=== PATIENT | female | born 1980 | race Caucasian/White ===

== ENCOUNTER 2017-01-02 06:43 | Day surgery (SDC) | payer OTHER ==
[2017-01-02] MEDS ORDERED: NS 1,000 ML IV ONE (06:52)
[2017-01-02] MEDS ORDERED: DIAZEPAM 5 MG TAB PO ONE (06:52)
[2017-01-02] MEDS ORDERED: ceFAZolin 2 GM/DEXTROSE 100 ML IV ONE (06:52)
[2017-01-02] MEDS ORDERED: BACITRACIN IRRIGATION/NS 50,000 UNITS/1,000 ML BTL IRR ONE (06:52)
[2017-01-02] MEDS ORDERED: diphenhydrAMINE 25 MG CAP PO ONE (06:52)
--- NOTE | 2017-01-02 07:14 | CPEKG ---
Heart Rate: 81 RR Interval: 741 P-R Interval: 168 QRSD Interval: 108 QT Interval: 408 QTC Interval: 474 P [place]: 27 QRS [place]: -21 T Wave [place]: 12 EKG Severity - ABNORMAL ECG - EKG Impression: SINUS RHYTHM EKG Impression: LEFT VENTRICULAR HYPERTROPHY Electronically Signed By: Cristiano Vazquez 02-Jan-2017 16:08:08
[2017-01-02 07:33] LABS: % IMMATURE GRANULYOCYTES 1.1 % (0.0-1.1); ABSOLUTE IMMATURE GRANULOCYTES 0.08 10^3/uL (0.00-0.10); ABSOLUTE NRBC COUNT 0.04 10^3/uL (0-0.01); ADD DIFF? NO; ADD MORPH? YES; ADD SCAN? NO; ATYPICAL LYMPHOCYTE FLAG 10 (0-99); FRAGMENT RBC FLAG 20 (0-99); HEMATOCRIT 41.6 % (38.0-47.0); HEMOGLOBIN 12.9 g/dL (12.6-16.3); LEFT SHIFT FLG 10 (0-99); LIPEMIA HEMOLYSIS FLAG 80 (0-99); MEAN CELL VOLUME 87.2 fL (81.5-99.8); MEAN PLATELET VOLUME 9.6 fL (8.7-11.7); NRBC-AUTO% 0.5 % (0.0-0.2); PLATELET CLUMPS FLAG 10 (0-99); PLATELET COUNT 227 10^3/uL (150-400); RED BLOOD CELL COUNT 4.77 10^6/uL (4.18-5.33)
[2017-01-02 07:35] LABS: RED CELL DISTRIBUTION WIDTH 21.3 % (11.5-15.2)
[2017-01-02 07:42] LABS: INR 1.5 (0.83-1.16); PROTIME(PATIENT) 18.1 SEC (12.0-15.0)
[2017-01-02 07:45] LABS: ANION GAP 10 mEq/L (8-16); CALCIUM 8.7 mg/dL (8.5-10.4); CARBON DIOXIDE 31 mEq/l (22-31); CHLORIDE 101 mEq/L (97-110); CREATININE 0.7 mg/dL (0.6-1.0); GLOMERULAR FILTRATION RATE > 60; GLUCOSE 88 mg/dL (70-100); POTASSIUM 4.3 mEq/L (3.5-5.2); SODIUM 142 mEq/L (134-144)
[2017-01-02 07:54] LABS: MACROCYTES 1+; MICROCYTES 2+
[2017-01-02 07:55] LABS: HYPOCHROMIA 1+; PLATELET ESTIMATE ADEQUATE (ADEQ)
[2017-01-02] MEDS ORDERED: LIDOCAINE 1% 300 MG/30 ML SDV ONE (08:17)
[2017-01-02] MEDS ORDERED: fentaNYL 100 MCG/2 ML INJ ONE ×2 (08:17→09:22)
[2017-01-02] MEDS ORDERED: MIDAZOLAM 2 MG/2 ML VIAL ONE ×2 (08:17→09:19)
[2017-01-02] MEDS ORDERED: LIDO/EPI 1% **for epidural** 30 ML SDV ONE (08:18)
[2017-01-02] MEDS ORDERED: BUPIVACAINE 0.5% 30 ML SDV ONE (08:18)
[2017-01-02] MEDS ORDERED: DEXMEDETOMIDINE HCL 200 MCG/2 ML VIAL IV ONE (09:21)
[2017-01-02] MEDS ORDERED: PROPOFOL/EMULSION 500 MG/50 ML BOTTLE IV ONE ×2 (09:22→10:06)
--- NOTE | 2017-01-02 10:43 | EPPROC ---
Electrophysiology Procedure Note: PROCEDURE PERFORMED: 1. AV Pacemaker generator change INDICATION: Pacemaker generator at REGLA Bradycardia PROCEDURE NOTE: Patient presented to the cardiac catheterization laboratory in a fasting, postabsorptive state. Anesthesiologist provided moderate sedation. The right infraclavicular area was prepped and draped in the usual sterile fashion. Lidocaine plus bupivacaine was used for local anesthesia. Using a combination of blunt and sharp dissection and electrocautery, the dissection was carried down to the prepectoral fascia and the existing pacemaker pocket was opened. The pacemaker generator was disconnected from the leads and the lead thresholds and impedance were checked. The pacemaker pocket was copiously irrigated with antibiotic solution. The pocket was again inspected for any bleeding. The leads were attached to the pacemaker securely. The pacemaker was inserted into the pocket and secured in place with a nonabsorbable suture. The pacemaker pocket was closed in 3 layers with absorbable monocryl sutures. Appropriate dressing was applied. The patient left the cardiac catheterization laboratory in stable condition. Serial Numbers: 1. Device Medtronic Advisa [id number] 2. Atrial Lead Medtronic 4076 [id number] 3. Ventricular Lead Medtronic 4076 [id number] Stimulation Thresholds & Impedance Measurements: 1. Atrial Lead 2.1mV, 0.5@0.5ms, 453Ohms 2. Ventricular Lead 15.3mV, 0.6@0.5ms, 472Ohms Deshawn Pacing Parameters 1. Pacing mode DDD 2. Lower rate 60 3. Upper tracking rate 135
[2017-01-02] MEDS ORDERED: NALOXONE HCL 0.4 MG/ML INJ IVP PRN ×2 (11:01→11:02)
--- NOTE | 2017-01-02 11:01 | PDANEPAE ---
ANE History of Present Illness presents for PM gen change ANE Past Medical History - Cardiovascular History Hx Hypertension: No Hx Arrhythmias: Yes Hx Chest Pain: No Hx Coronary Artery / Peripheral Vascular Disease: No Hx CHF / Valvular Disease: No Hx Palpitations: No - Pulmonary History Hx COPD: No Hx Asthma/Reactive Airway Disease: No Hx Recent Upper Respiratory Infection: No Hx Oxygen in Use at Home: Yes Hx Sleep Apnea: Yes - Neurologic History Hx Cerebrovascular Accident: No Hx Seizures: No Hx Dementia: No - Endocrine History Hx Diabetes: No Hypothyroid: No Hyperthyroid: No Obesity: severe - Renal History Hx Renal Disorders: No - Liver History Hx Hepatic Disorders: No - Cancer History Hx Cancer: No - Congenital Disorder History Hx Congenital Disorders: No - GI History Hx Gastrointestinal Disorders: No - Other Health History Other Health History: h/o DVT/PE on coumadin ANE Review of Systems Review of systems is: negative - Exercise capacity Exercise capacity: >=4 METS ANE Patient History - Allergies Allergies/Adverse Reactions: No Known Allergies Allergy (Unverified 01/02/17 06:52) - Home Medications Home Medications: Aleve Pm Caplet PO 01/02/17 [Last Taken 12/26/16] Amitriptyline HCl 50 mg PO 01/02/17 [Last Taken Unknown] Amitriptyline HCl 50 mg PO DAILY 01/02/17 [Last Taken 01/01/17] Calcium 500 + Vit D Caplet 1 tab PO BID 01/02/17 [Last Taken 01/01/17] Cymbalta 90 mg PO DAILY 01/02/17 [Last Taken 01/01/17] Ferrous Sulfate [Feosol] PO BID 01/02/17 [Last Taken 01/01/17] LAMOTRIGINE 30 g PO DAILY 01/02/17 [Last Taken 01/01/17] Latuda 60 mg PO DAILY 01/02/17 [Last Taken 01/01/17] Levothyroxine 112 mcg PO DAILY 01/02/17 [Last Taken 01/01/17] Metoprolol Succinate 25 mg PO DAILY 01/02/17 [Last Taken 01/01/17] Oxycodone HCl 15 mg PO PRN PRN 01/02/17 [Last Taken 01/01/17] Oxycontin 60 mg PO PRN PRN 01/02/17 [Last Taken 01/01/17] Pantoprazole Sodium 40 mg PO DAILY 01/02/17 [Last Taken 01/01/17] Valacyclovir 500 mg PO DAILY 01/02/17 [Last Taken 01/01/17] Valium 5 MG (*) 5 mg PO PRN PRN 01/02/17 [Last Taken 12/26/16] Warfarin Sodium 4 mg PO 01/02/17 [Last Taken 12/29/16] Warfarin Sodium 5 mg PO 01/02/17 [Last Taken 12/30/16] traZODone 100 mg PO PRN PRN 01/02/17 [Last Taken 12/26/16] - NPO status NPO Status: no food or drink >8 hours - Smoking Hx Smoking Status: Never smoked ANE Labs/Vital Signs - Labs Result Diagrams: 01/02/17 07:20 01/02/17 07:20 - Vital Signs Height: 175 cm Weight: 127.9 kg ANE Physical Exam - Airway Neck exam: FROM Mallampati Score: Class 2 Mouth exam: normal dental/mouth exam - Pulmonary Pulmonary: no respiratory distress - Cardiovascular Cardiovascular: regular rate and rhythym - ASA Status ASA Status: III ANE Anesthesia Plan Anesthesia Plan: MAC Urgent/Emergent Case: Darian paul completed preop but documented later for safe timely pt care
[2017-01-02] MEDS ORDERED: fentaNYL 100 MCG/2 ML INJ IVP PRN (11:02)
[2017-01-02] MEDS ORDERED: ONDANSETRON 4 MG/2 ML VIAL IVP PRN (11:02)
--- NOTE | 2017-01-02 11:04 | POSTANESTH ---
Post Anesthetic Evaluation Cardiovascular Status: Normal, Stable Respiratory Status: Normal, Stable Level of Consciousness/Mental Status: Can Participate in Eval Pain Control: Adequate, Prn Tx Ordered Nausea/Vomiting Control: Adequate, Prn Tx Ordered Complications Possibly Related to Anesthesia: None Noted (awake talking. CHELSIE protocol)
== END 2017-01-02 14:10 | disposition home or self-care (01) ==
LOC: FCATH 06:43
PROVIDERS: ATTEND Internal Medicine Cardiovascular Disease
PROC: 0JPT0PZ Removal of Cardiac Rhythm Related Device from Trunk Subcutaneous Tissue and Fascia, Open Approach (ICD-10-PCS; principal; 2017-01-02)
PROC: 0JH606Z Insertion of Pacemaker, Dual Chamber into Chest Subcutaneous Tissue and Fascia, Open Approach (ICD-10-PCS; principal; 2017-01-02)
DX: Z45.010 Encounter for checking and testing of cardiac pacemaker pulse generator [battery] (principal); R00.1 Bradycardia, unspecified; Z86.718 Personal history of other venous thrombosis and embolism; G47.33 Obstructive sleep apnea (adult) (pediatric); E66.9 Obesity, unspecified; Z68.41 Body mass index [BMI] 40.0-44.9, adult
CPT/HCPCS: C1785; J0690; J2250; J2704; J3010

== ENCOUNTER 2017-07-06 18:52 | Inpatient (IN) | payer OTHER ==
--- NOTE | 2017-07-06 19:12 | EDPHY ---
H & P Stated Complaint: sob cp last 3 days HPI/ROS: CHIEF COMPLAINT: Shortness of breath, chest pain HISTORY OF PRESENT ILLNESS: The patient is an obese, anticoagulated (Coumadin) 36 y/o female with a history of WPW status post-ablation x3, pacemaker placement, DVT and PE, GERD, complaining of shortness of breath and chest pain since , 3 days ago, while relaxing. Last year she had a reportedly normal stress test. The pain began on substernally, but is now radiating to/under her left breast; it occasionally radiates to her right chest. She denies arm, neck, or jaw pain. She was able to do activities on Friday and yesterday if she wore oxygen. Today she began to feel nauseous. Her symptoms today did not feel the same as prior PE's, DVT's, or anxiety attacks. She tells me that she spoke with her kickboxing instructor who recommended a catheterization if her current symptoms persisted. Denies recent trauma or injury, calf pain, abdominal pain, vomiting, bowel complaints, urinary complaints or other pertinent symptoms. Followed by Dr. Bergeron, kickboxing instructor. REVIEW OF SYSTEMS: A ten point review of systems was performed and is negative with the exception of the items mentioned in the HPI. Past medical history: 1. DVT/PE 2. pulmonary HTN 3. WPW status post-ablation x3 4. Ankylosing spondylitis 5. Sleep apnea, CPAP and supplemental oxygen 6. Bipolar 7. GERD Past surgical history: 1. Pacemaker 2017 2. Lumbar surgery 2009 Family history: Denies Social history: Lives in [place], , nonsmoker General Appearance: Obese. Alert. Vital signs reviewed. Blood pressure measured 122/100 at triage. Eyes: Pupils equal and round, no conjunctival injection, no discharge. Anicteric. ENT, Mouth: Mucous membranes are dry, no oropharyngeal erythema or edema. Neck: No lymphadenopathy, supple. NO JVD. Respiratory: Lungs are clear to auscultation; no wheezes, rales, or rhonchi. Cardiovascular: Regular rate and rhythm; no murmur, rub, or gallop. Gastrointestinal: Obese. Abdomen is soft and nontender, no masses or organomegaly, bowel sounds normal. Skin: Warm and dry, no rashes on exposed skin, normal color. Back: Nontender to palpation over the thoracolumbar spine. No CVAT. Extremities: No lower extremity edema, no calf tenderness or swelling. Neurological: Alert and oriented. Moving all four extremities easily and equally. Psychiatric: Normal affect. - Personal History LMP (Females 10-55): IUD In Place Current Tetanus/Diphtheria Vaccine: Yes - Medical/Surgical History Hx Asthma: No Hx Chronic Respiratory Disease: No Hx Diabetes: No Hx Cardiac Disease: Yes Hx Renal Disease: No Hx Cirrhosis: No Hx Alcoholism: No Hx HIV/AIDS: No Hx Splenectomy or Spleen Trauma: No Other PMH: wpw pht/pacemaker/dvt/pe/ankylosing spondylitis - Social History Smoking Status: Never smoked Constitutional: Initial Vital Signs Temperature (C) 37.2 C 07/06/17 19:01 Heart Rate 85 07/06/17 19:01 Respiratory Rate 18 07/06/17 19:01 Blood Pressure 122/100 H 07/06/17 19:01 O2 Sat (%) 96 07/06/17 19:01 O2 Delivery Mode Nasal Cannula O2 (L/minute) 2 Allergies/Adverse Reactions: No Known Allergies Allergy (Verified 07/06/17 18:59) Home Medications: Medication Instructions Recorded Amitriptyline HCl [Elavil 50 mg 50 mg PO HS 01/02/17 (*)] Ibuprofen [Motrin (*)] 200 mg PO DAILY PRN 01/02/17 Levothyroxine [Synthroid 112 mcg 112 mcg PO DAILY06 01/02/17 (*)] Lurasidone HCl [Latuda] 120 mg PO HS 01/02/17 Pantoprazole Sodium [Protonix 40mg 40 mg PO DAILY 01/02/17 (*)] Warfarin Sodium [Coumadin 3MG (*)] 6 mg PO SUMOWEFR@21 01/02/17 Warfarin Sodium [Coumadin 4MG (*)] 4 mg PO TUTHSA@01/02/17 lamoTRIgine [LamICTAL 100 MG (*)] 300 mg PO HS 01/02/17 traZODone [traZODONE 100MG (*)] 100 - 200 mg PO HS PRN 01/02/17 valACYclovir [Valtrex (*)] 500 mg PO HS 01/02/17 Adalimumab [Humira] 40 mg SQ Q14D 07/06/17 DULoxetine [Cymbalta 30 MG (*)] 90 mg PO DAILY 07/06/17 Lisinopril [Zestril 10 mg (*)] 10 mg PO DAILY 07/06/17 Metoprolol Succinate Xr [Toprol Xl 50 mg PO DAILY 07/06/17 50 mg (*)] Modafinil [Provigil 100 mg (*)] 200 mg PO DAILY 07/06/17 Torsemide 40 mg PO DAILY 07/06/17 Frovatriptan Succinate [Frova] 2.5 mg PO DAILY PRN 07/07/17 hydrOXYzine HCL [hydrOXYzine HCL 50 mg PO Q8 07/07/17 (RX)] Medical Decision Making - Diagnostics Imaging: Discussed imaging studies w/ drilling machine runner Radiologist, I viewed and interpreted images myself ED Course/Re-evaluation: The patient is an obese, anticoagulated (Coumadin) 36 y/o female with complex medical history that includes WPW status post-ablation x3, pacemaker placement, DVT and PE presenting with shortness of breath and left-sided chest pain. Her physical exam is unremarkable. Is followed by Dr. Bergeron, kickboxing instructor. Labs, EKG , and chest x-ray ordered. 1916: The 12 lead EKG was interpreted by myself as sinus rhythm with a rate of 76. See hard copy and/or "tracemaster" electronic copy for interpretation. 2020: 6mg IV Morphine, 4mg IV Zofran, 500ml IV NS administered. Chest x-ray reveals no acute abnormalities. Chest CTA ordered to assess for PE in the setting of INR of 1.98 on Coumadin with a history of PE. She has a creatinine of 1.1 and will be relatively aggressively hydrated after receiving contrast. 2209: Spoke with radiologist, he reports the chest CT reveals no acute findings. 2214: Consulted with hospitalist service, Dr. Steven accepts admission of this patient. 1L IV NS administered. Sales Clerk Food hone operator notified of her admission. Her pain persists. I think ACS unlikely. No arrhythmias noted while in ED. First troponin WNL. PE ruled out with CTA. Nothing to suggest an infectious process such as pneumonia, pericarditis. Reassessed patient and discussed laboratory and imaging findings. I have also discussed plan for admission; patient is comfortable with this plan. Differential Diagnosis: Chest pain including but not limited to myocardial ischemia, pulmonary embolus, chest wall pain, pleural inflammation and pulmonary infectious causes. - Data Points Laboratory Results: Laboratory Results 07/07/17 05:30 07/07/17 05:30 Medications Given: Acetaminophen (Tylenol) 650 mg PO Q4HRS PRN PRN Reason: Pain, Mild/Fever, Can Take PO Stop: 01/02/18 22:25 Last Admin: 07/07/17 07:40 Dose: 650 mg Amitriptyline HCl (Elavil) 50 mg PO HS BRENNA Stop: 01/03/18 20:59 Last Admin: 07/07/17 19:58 Dose: 50 mg Duloxetine HCl (Cymbalta) 90 mg PO DAILY BRENNA Stop: 01/04/18 08:59 Last Admin: 07/08/17 09:05 Dose: 90 mg Enoxaparin Sodium (Lovenox) 130 mg SC BID BRENNA Stop: 01/03/18 09:44 Last Admin: 07/08/17 09:05 Dose: 130 mg Hydroxyzine HCl (Hydroxyzine Hcl) 50 mg PO Q8 BRENNA Stop: 01/03/18 13:59 Last Admin: 07/08/17 06:37 Dose: 50 mg Ketorolac Tromethamine (Toradol) 15 mg IVP Q6HRS BRENNA Stop: 07/12/17 19:59 Last Admin: 07/08/17 06:36 Dose: 15 mg Lamotrigine (Lamictal) 300 mg PO HS BRENNA Stop: 01/03/18 20:59 Last Admin: 07/07/17 19:58 Dose: 300 mg Levothyroxine Sodium (Synthroid) 112 mcg PO DAILY06 BRENNA Stop: 01/04/18 05:59 Last Admin: 07/08/17 06:37 Dose: 112 mcg Lisinopril (Zestril) 10 mg PO DAILY BRENNA Stop: 01/03/18 09:14 Last Admin: 07/08/17 09:06 Dose: 10 mg Lurasidone HCl (Latuda) 120 mg PO DAILY AT 6PM BRENNA Stop: 01/03/18 17:59 Last Admin: 07/07/17 18:36 Dose: 120 mg Metoprolol Succinate (Toprol Xl) 50 mg PO DAILY BRENNA Stop: 01/03/18 09:14 Last Admin: 07/08/17 09:06 Dose: 50 mg Modafinil (Provigil) 200 mg PO DAILY BRENNA Stop: 01/03/18 09:14 Last Admin: 07/08/17 09:05 Dose: 200 mg Ondansetron HCl (Zofran) 4 mg IVP Q4HRS PRN PRN Reason: Nausea/Vomiting, Can't Take PO Stop: 01/02/18 22:25 Last Admin: 07/07/17 07:40 Dose: 4 mg Pantoprazole Sodium (Protonix) 40 mg PO DAILY [facility] Stop: 01/03/18 09:13 Last Admin: 07/08/17 09:05 Dose: 40 mg Torsemide (Demadex) 40 mg PO DAILY [facility] Stop: 01/03/18 09:13 Last Admin: 07/08/17 09:05 Dose: 40 mg Valacyclovir HCl (Valtrex) 500 mg PO HS [facility] Stop: 08/06/17 20:59 Last Admin: 07/07/17 19:58 Dose: 500 mg Warfarin Sodium (Coumadin) 6 mg PO SUMOWEFR@21 [facility] Stop: 01/03/18 20:59 Last Admin: 07/07/17 19:58 Dose: 6 mg Discontinued Medications Sodium Chloride (Ns) 500 mls @ 1,000 mls/hr IV EDNOW ONE PRN Reason: Protocol Stop: 07/06/17 20:48 Last Admin: 07/06/17 20:22 Dose: 500 mls Sodium Chloride (Ns) 1,000 mls @ 0 mls/hr IV EDNOW ONE; Wide Open PRN Reason: Protocol Stop: 07/06/17 22:28 Last Admin: 07/06/17 23:10 Dose: 1,000 mls Ketorolac Tromethamine (Toradol) 15 mg IVP ONCE ONE Stop: 07/07/17 09:13 Last Admin: 07/07/17 09:52 Dose: 15 mg Ketorolac Tromethamine (Toradol) 15 mg IVP ONCE ONE Stop: 07/07/17 11:16 Last Admin: 07/07/17 11:32 Dose: 15 mg Morphine Sulfate (Morphine) 6 mg IVP EDNOW ONE Stop: 07/06/17 20:53 Last Admin: 07/06/17 21:59 Dose: 6 mg Ondansetron HCl (Zofran) 4 mg IVP EDNOW ONE Stop: 07/06/17 20:20 Last Admin: 07/06/17 20:22 Dose: 4 mg Departure - Departure Disposition: [facility] Inpatient Acute Clinical Impression: Shortness of breath Chest pain Qualifiers: Chest pain type: other chest pain Qualified Code(s): R07.89 - Other chest pain Condition: Fair Report Scribed for: Flori Combs Report Scribed by: Miroslava Barrett Date of Report: 07/06/17 Time of Report: 19:15 Physician Review and Approval Statement: 07/06/17 19:12 Portions of this note were transcribed by the infertility medical assistant. I, Dr. Flori Combs, personally performed the history, physical exam, and medical decision- making; and confirmed the accuracy of the information in the transcribed note.
--- NOTE | 2017-07-06 19:21 | CPEKG ---
Heart Rate: 74 RR Interval: 811 P-R Interval: 160 QRSD Interval: 120 QT Interval: 412 QTC Interval: 457 P [place]: 41 QRS [place]: -13 T Wave [place]: 14 EKG Severity - ABNORMAL ECG - EKG Impression: SINUS RHYTHM EKG Impression: NONSPECIFIC INTRAVENTRICULAR CONDUCTION DELAY EKG Impression: PROBABLE LEFT VENTRICULAR HYPERTROPHY Electronically Signed By: Flori Combs 06-Jul-2017 23:32:54
[2017-07-06 19:39] LABS: PLATELET COUNT 256 10^3/uL (150-400)
[2017-07-06 19:53] LABS: INR 1.98 (0.83-1.16); PROTIME(PATIENT) 22.6 SEC (12.0-15.0)
[2017-07-06] MEDS ORDERED: ONDANSETRON 4 MG/2 ML VIAL IVP ONE (20:19)
[2017-07-06] MEDS ORDERED: NS 500 ML IV ONE (20:19)
[2017-07-06] MEDS ORDERED: IOPAMIDOL (ISOVUE 370) 100 ML BTL IV ONE (21:13)
[2017-07-06] MEDS ORDERED: ONDANSETRON 4 MG/2 ML VIAL IVP PRN (22:26)
[2017-07-06] MEDS ORDERED: ONDANSETRON DISINTEGRATING 4 MG TAB PO PRN (22:26)
[2017-07-06] MEDS ORDERED: NS 1,000 ML IV ONE (22:27)
--- NOTE | 2017-07-06 23:35 | PDGENHP ---
History and Physical - Chief Complaint GUTIERREZ - History of Present Illness 36 yo F w/ hx of WPW s/p ablation, CHB s/p PPM, pHTN, CHELSIE, diastolic HF, and DVT /PE on warfarin presents with chest pain and dyspnea on exertion. Patient reports that she was in usual state of health until about 3 days ago. Since that point she noticed dyspnea on exertion and chest pain. She states that her dyspnea worsens upon laying flat. She describes the chest pain as moderate, sub- sternal, and worse with exertion. She denies signs or symptoms of respiratory illness. She checked her O2 at home and noted 85% on RA. She usually only wears O2 at night. She follows with Dr. Bergeron who told patient to come in to the hospital to be evaluated for these symptoms and for possible cardiac cath tomorrow. In the ED her work-up thus far has been relatively unremarkable with normal cardiac enzymes, unremarkable ECG, CTA chest with no acute findings, and mild hypoxia corrected with 2 L/min O2. She is being admitted for observation and cardiology consultation. History Information - Allergies/Home Medication List Allergies/Adverse Reactions: No Known Allergies Allergy (Verified 07/06/17 18:59) Home Medications: Aleve Pm Caplet PO 01/02/17 [Last Taken 12/26/16] Amitriptyline HCl 50 mg PO 01/02/17 [Last Taken Unknown] Amitriptyline HCl 50 mg PO DAILY 01/02/17 [Last Taken 01/01/17] Calcium 500 + Vit D Caplet 1 tab PO BID 01/02/17 [Last Taken 01/01/17] Cymbalta 90 mg PO DAILY 01/02/17 [Last Taken 01/01/17] Ferrous Sulfate [Feosol] PO BID 01/02/17 [Last Taken 01/01/17] LAMOTRIGINE 30 g PO DAILY 01/02/17 [Last Taken 01/01/17] Latuda 60 mg PO DAILY 01/02/17 [Last Taken 01/01/17] Levothyroxine 112 mcg PO DAILY 01/02/17 [Last Taken 01/01/17] Metoprolol Succinate 25 mg PO DAILY 01/02/17 [Last Taken 01/01/17] Pantoprazole Sodium 40 mg PO DAILY 01/02/17 [Last Taken 01/01/17] Valacyclovir 500 mg PO DAILY 01/02/17 [Last Taken 01/01/17] Warfarin Sodium 4 mg PO 01/02/17 [Last Taken 12/29/16] Warfarin Sodium 5 mg PO 01/02/17 [Last Taken 12/30/16] traZODone 100 mg PO PRN PRN 01/02/17 [Last Taken 12/26/16] DULoxetine 07/06/17 [Last Taken Unknown] Humira 07/06/17 [Last Taken Unknown] Lisinopril 07/06/17 [Last Taken Unknown] Metoprolol Succinate 07/06/17 [Last Taken Unknown] Modafinil 07/06/17 [Last Taken Unknown] Torsemide 07/06/17 [Last Taken Unknown] I have personally reviewed and updated: family history, medical history - Past Medical History CHF Additional medical history: CHELSIE. pHTN. Depression, anxiety. Hypothyroid. DVT /PE. Ankylosing Spondylitis - Surgical History Reports: pacemaker/AICD - Family History Positive for: cancer - Social History Smoking Status: Never smoked Review of Systems Review of Systems: ROS: 10pt was reviewed & negative except for what was stated in HPI & below Physical Exam Physical Exam: Temp Pulse Resp BP Pulse Ox 37.2 C 64 18 109/71 92 07/06/17 19:01 07/06/17 23:22 07/06/17 23:22 07/06/17 23:22 07/06/17 23:22 O2 (L/minute) 2 Constitutional: no apparent distress, obese Eyes: PERRL, EOMI Ears, Nose, Mouth, Throat: moist mucous membranes, no oral mucosal ulcers Cardiovascular: regular rate and rhythym, no murmur, rub, or gallop Respiratory: no respiratory distress, reduced air movement Gastrointestinal: normoactive bowel sounds, soft, non-tender abdomen Skin: warm, normal color Musculoskeletal: full muscle strength, no muscle tenderness Neurologic: AAOx3, CN II-XII Intact Psychiatric: interacting appropriately, not anxious Lab Data & Imaging Review 07/06/17 19:30 07/06/17 19:30 WBC 9.15 10^3/uL (3.80-9.50) 07/06/17 19:30 RBC 5.35 10^6/uL (4.18-5.33) H 07/06/17 19:30 Hgb 15.5 g/dL (12.6-16.3) 07/06/17 19: Hct 45.5 % (38.0-47.0) 07/06/17 19: MCV 85.0 fL (81.5-99.8) 07/06/17 19: MCH 29.0 pg (27.9-34.1) 07/06/17 19: MCHC 34.1 g/dL (32.4-36.7) 07/06/17: RDW 14.6 % (11.5-15.2) 07/06/17: Plt Count 256 10^3/uL (150-400) 07/06/17 19: MPV 9.5 fL (8.7-11.7) 07/06/17: Neut % (Auto) 53.3 % (39.3-74.2) 07/06/17: Lymph % (Auto) 33.9 % (15.0-45.0) 07/06/17: [place] % (Auto) 8.7 % (4.5-13.0) 07/06/17: Eos % (Auto) 2.8 % (0.6-7.6) 07/06/17: Baso % (Auto) 1.0 % (0.3-1.7) 07/06/17: Nucleat RBC Rel Count 0.0 % (0.0-0.2) 07/06/17: Absolute Neuts (auto) 4.87 10^3/uL (1.70-6.50) 07/06/17: Absolute Lymphs (auto) 3.10 10^3/uL (1.00-3.00) H 07/06/17: Absolute Monos (auto) 0.80 10^3/uL (0.30-0.80) 07/06/17: Absolute Eos (auto) 0.26 10^3/uL (0.03-0.40) 07/06/17: Absolute Basos (auto) 0.09 10^3/uL (0.02-0.10) 07/06/17: Absolute Nucleated RBC 0.00 10^3/uL (0-0.01) 07/06/17 19:30 Immature Gran % 0.3 % (0.0-1.1) 07/06/17 19:30 Immature Gran # 0.03 10^3/uL (0.00-0.10) 07/06/17 19:30 PT 22.6 SEC (12.0-15.0) H 07/06/17 19:30 INR 1.98 (0.83-1.16) H 07/06/17 19:30 APTT 30.8 SEC (23.0-38.0) 07/06/17 19:30 Sodium 139 mEq/L (134-144) 07/06/17 19:30 Potassium 4.3 mEq/L (3.5-5.2) 07/06/17 19:30 Chloride 97 mEq/L (97-110) 07/06/17 19:30 Carbon Dioxide 24 mEq/l (22-31) 07/06/17 19:30 Anion Gap 18 mEq/L (8-16) H 07/06/17 19:30 BUN 16 mg/dL (7-23) 07/06/17 19:30 Creatinine 1.1 mg/dL (0.6-1.0) H 07/06/17 19:30 Estimated GFR 56 07/06/17 19:30 Glucose 88 mg/dL (70-100) 07/06/17 19:30 Calcium 9.6 mg/dL (8.5-10.4) 07/06/17 19:30 Troponin I < 0.012 ng/mL (0.000-0.034) 07/06/17 19:30 Imaging Review: Imaging Impressions Chest X-Ray 07/06/17 19:29 Impression: 1. Pacemaker without pneumothorax. 2. No acute pulmonary disease. Chest/Thorax CTA 07/06/17 21:08 Impression: 1. No definite pulmonary thromboemboli. 2. Pacemaker without pneumothorax. 3. No aortic dissection, aneurysm, or pericardial effusion. 4. No acute pneumonia. Findings and recommendations discussed with Emergency Department physician, ANGELICA BRUNO at 22:16 hour, 07/06/2017. Final report concurs with initial preliminary interpretation. A test result has been communicated to a licensed care provider and documented in the [facility] Critical Result system on 07/06/2017 22:16, Message ID [id number]. Visualized and Interpreted EKG results: Yes EKG Interpretation: Positive for: normal sinsus rhythm Assessment & Plan Assessment: 36 yo F w/ hx of WPW s/p ablation, CHB s/p PPM, pHTN, CHELSIE, diastolic HF, and DVT /PE on warfarin presents with chest pain and dyspnea on exertion of unclear etiology. Plan: 1. Chest pain, GUTIERREZ - Unclear etiology. Work-up thus far unremarkable with normal cardiac enzymes, unremarkable ECG, CTA chest with no acute findings, and mild hypoxia corrected with 2 L/min O2. Volume exam is difficult noting body habitus and it possible patient has mild volume overload that could explain these symptoms noting they are worse when she lays flat. However, she claims to monitor her weight and states this has been stable. Cardiolite stress performed on 01/13 showed no signs of ischemia. - Monitor on telemetry, trend cardiac enzymes - Check BNP - Will not repeat TTE noting most recently obtained in April of 2017 with preserved EF - Cardiology service consulted, will maintain NPO in case they opt for invasive testing 2. Chronic diastolic HF - TTE in April of 2017 with preserved EF. She takes torsemide 40 mg qD, lisinopril 10 mg qD, and Toprol XL 50 mg qD. Needs med reconciliation. 3. Acute on chronic HRF - Unclear if this is truly worse than baseline. Patient normally only uses 2 L O2 nocturnally but has been using 2L during the day over the last few days for O2 sat of 85% on RA. Etiology likely combination of CHELSIE/ OHS and pHTN. - IS ordered, wean O2 as able 4. Hx WPW - S/p ablation 5. Hx CHG - S/p PPM 6. pHTN - Class 3 2/2 CHELSIE; on O2 and CPAP nocturnally. 7. CHELSIE - Nighttime CPAP 8. Hx DVT/PE - On warfarin chronically, monitor daily INR 9. Hx ankylosing spondylitis - On Humira. Diet - NPO @ [place] Code - Full Ppx - warfarin Dispo - Admit to observation status
[2017-07-07 05:45] LABS: PLATELET COUNT 227 10^3/uL (150-400)
[2017-07-07 06:01] LABS: INR 1.77 (0.83-1.16); PROTIME(PATIENT) 20.7 SEC (12.0-15.0)
[2017-07-07] MEDS: ACETAMINOPHEN 325 MG TAB PO PRN (07:40)
--- NOTE | 2017-07-07 08:53 | PDCARCONS ---
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 Patient with ongoing substernal chest pains (reported as "6") with radiation left morris, but not into the arm, neck, or jaw. Dyspnea continues to be noted (but, in review of the last outpatient office note from Dr. Sherlyn Bergeron from 07-02-17, there were similar complaints of dyspnea voiced at that time. No fevers or chills. No constipation or diarrhea. No sick contacts. Echocardiography from April 2017, but results of this study were not available for review at the time of this note. CTA was performed after subtherapeutic INR was noted (1.5) without definite PE noted. History of "costochondritis" in the past, which the patient reported as "bad", and similar symptoms are being noted today. No weight gain or loss has been noted. At present, the patient is uncomfortable given the ongoing shortness of breath and chest pains noted. History Information - Allergies/Home Medication List Allergies/Adverse Reactions: No Known Allergies Allergy (Verified 07/06/17 18:59) Home Medications: Amitriptyline HCl [Elavil 50 mg (*)] 50 mg PO HS 01/02/17 [Last Taken 07/05/17] Ibuprofen [Motrin (*)] 200 mg PO DAILY PRN 01/02/17 [Last Taken 07/06/17] Levothyroxine [Synthroid 112 mcg (*)] 112 mcg PO DAILY06 01/02/17 [Last Taken ] Lurasidone HCl [Latuda] 120 mg PO HS 01/02/17 [Last Taken 07/06/17] Pantoprazole Sodium [Protonix 40mg (*)] 40 mg PO DAILY 01/02/17 [Last Taken 01/14] Warfarin Sodium [Coumadin 3MG (*)] 6 mg PO SUMOWEFR@01/02/17 [Last Taken 11/14] Warfarin Sodium [Coumadin 4MG (*)] 4 mg PO TUTHSA@21 01/02/17 [Last Taken ] lamoTRIgine [LamICTAL 100 MG (*)] 300 mg PO HS 01/02/17 [Last Taken 07/05/17] traZODone [traZODONE 100MG (*)] 100 - 200 mg PO HS PRN 01/02/17 [Last Taken ] valACYclovir [Valtrex (*)] 500 mg PO HS 01/02/17 [Last Taken 07/05/17] Adalimumab [Humira] 40 mg SQ Q14D 07/06/17 [Last Taken 07/05/17] DULoxetine [Cymbalta 30 MG (*)] 90 mg PO DAILY 07/06/17 [Last Taken 07/06/17] Lisinopril [Zestril 10 mg (*)] 10 mg PO DAILY 07/06/17 [Last Taken 07/06/17] Metoprolol Succinate Xr [Toprol Xl 50 mg (*)] 50 mg PO DAILY 07/06/17 [Last Taken 07/06/17] Modafinil [Provigil 100 mg (*)] 200 mg PO DAILY 07/06/17 [Last Taken 07/06/17] Torsemide 40 mg PO DAILY 07/06/17 [Last Taken 07/06/17] Frovatriptan Succinate [Frova] 2.5 mg PO DAILY PRN 07/07/17 [Last Taken Unknown] hydrOXYzine HCL [hydrOXYzine HCL (RX)] 50 mg PO Q8 07/07/17 [Last Taken 14:00] I have personally reviewed and updated: family history, medical history, social history, surgical history Past Medical History: - Past Medical History GERD, pulmonary embolism, psychiatric history Additional medical history: WPW s/p ablations with PPM after last ablation - Surgical History Reports: ablation - Family History Positive for: non-pertinent - Social History Smoking Status: Never smoked Alcohol Use: None Drug Use: None Cardiac History - Cardiac History Past Cardiac History: ABLATION, PACEMAKER Cardiac Risk Factors: hypertension (>140/90) Timing/Duration: Days Severity: moderate Severity Scale: 6 Location: substernal Activities at Onset: rest Modifying Factors: improves with: lying down, oxygen, rest Associated Symptoms: chest pain, loss of appetite, nausea/vomiting, shortness of breath Physical Exam Physical Exam: Temp Pulse Resp BP Pulse Ox 36.6 C 65 22 H 108/59 L 95 07/07/17 07:49 07/07/17 07:49 07/07/17 07:49 07/07/17 07:49 07/07/17 07:49 O2 (L/minute) 2 Constitutional: no apparent distress, appears nourished, obese Eyes: PERRL Ears, Nose, Mouth, Throat: moist mucous membranes Cardiovascular: regular rate and rhythym, no murmur, rub, or gallop, pulses symmetric bilaterally, No systolic murmur, No JVD Peripheral Pulses: 2+: dorsalis-pedis (R), dorsalis-pedis (L) Respiratory: no respiratory distress, clear to auscultation, No expiratory wheeze, No inspiratory crackles Gastrointestinal: normoactive bowel sounds Skin: warm, normal color, No rash Musculoskeletal: full muscle strength, no muscle tenderness, normal joint ROM Neurologic: AAOx3, sensation intact bilaterally, CN II-XII Intact, No weakness Psychiatric: interacting appropriately, not anxious, not encephalopathic Lab and Imaging 07/07/17 05:30 07/07/17 05:30 WBC 7.82 10^3/uL (3.80-9.50) 07/07/17 05:30 RBC 4.90 10^6/uL (4.18-5.33) 07/07/17 05:30 Hgb 14.2 g/dL (12.6-16.3) 07/07/17 05:30 Hct 42.4 % (38.0-47.0) 07/07/17 05:30 MCV 86.5 fL (81.5-99.8) 07/07/17 05:30 MCH 29.0 pg (27.9-34.1) 07/07/17 05:30 MCHC 33.5 g/dL (32.4-36.7) 07/07/17 05:30 RDW 14.9 % (11.5-15.2) 07/07/17 05:30 Plt Count 227 10^3/uL (150-400) 07/07/17 05:30 MPV 10.0 fL (8.7-11.7) 07/07/17 05:30 Neut % (Auto) 45.9 % (39.3-74.2) 07/07/17 05:30 Lymph % (Auto) 41.3 % (15.0-45.0) 07/07/17 05:30 [place] % (Auto) 8.8 % (4.5-13.0) 07/07/17 05:30 Eos % (Auto) 2.7 % (0.6-7.6) 07/07/17 05:30 Baso % (Auto) 1.0 % (0.3-1.7) 07/07/17 05:30 Nucleat RBC Rel Count 0.0 % (0.0-0.2) 07/07/17 05:30 Absolute Neuts (auto) 3.59 10^3/uL (1.70-6.50) 07/07/17 05:30 Absolute Lymphs (auto) 3.23 10^3/uL (1.00-3.00) H 07/07/17 05:30 Absolute Monos (auto) 0.69 10^3/uL (0.30-0.80) 07/07/17 05:30 Absolute Eos (auto) 0.21 10^3/uL (0.03-0.40) 07/07/17 05:30 Absolute Basos (auto) 0.08 10^3/uL (0.02-0.10) 07/07/17 05:30 Absolute Nucleated RBC 0.00 10^3/uL (0-0.01) 07/07/17 05:30 Immature Gran % 0.3 % (0.0-1.1) 07/07/17 05:30 Immature Gran # 0.02 10^3/uL (0.00-0.10) 07/07/17 05:30 PT 20.7 SEC (12.0-15.0) H 07/07/17 05:30 INR 1.77 (0.83-1.16) H 07/07/17 05:30 APTT 30.8 SEC (23.0-38.0) 07/06/17 19:30 Sodium 140 mEq/L (134-144) 07/07/17 05:30 Potassium 3.9 mEq/L (3.5-5.2) 07/07/17 05:30 Chloride 99 mEq/L (97-110) 07/07/17 05:30 Carbon Dioxide 29 mEq/l (22-31) 07/07/17 05:30 Anion Gap 12 mEq/L (8-16) 07/07/17 05:30 BUN 18 mg/dL (7-23) 07/07/17 05:30 Creatinine 1.0 mg/dL (0.6-1.0) 07/07/17 05:30 Estimated GFR > 60 07/07/17 05:30 Glucose 89 mg/dL (70-100) 07/07/17 05:30 Calcium 8.7 mg/dL (8.5-10.4) 07/07/17 05:30 Troponin I < 0.012 ng/mL (0.000-0.034) 07/07/17 05:30 NT-Pro-B Natriuret Pep 27 pg/mL (0-125) 07/06/17 19:30 Visualized and Interpreted Chest x-ray results: Yes Chest X-ray Interpretation: no infiltrate, normal, normal heart size Visualized and Interpreted imaging results: Yes Interpretation: CT without PE EKG Interpretation: Positive for: normal sinsus rhythm Telemetry: normal sinus rhythm Echocardiogram: pending A/P Assessment: Patient is a 36 y/o female with WPW s/p ablations (3) then s/p PPM after the last, PE/DVT (on coumadin), with GERD, HTN, obesity, diastolic heart failure, CHELSIE with CPAP use, and bipolar disorder, who presented to [facility] with complaints of both chest pains and dyspnea. Patient is not feeling any better today. There was reproduction of the chest pains noted with palpitation of the intercostal spaces (bilaterally). Given the acuity of the symptoms noted, would repeat echocardiogram for assessment of wall motion, chamber dimensions, and right heart pressures. Would have pacer interrogated (Cardiio) for assessment of rhythms noted during these symptoms. Would not arrange for angiography at this time (stress testing in December 2016 was reported "normal"). Would continue therapy on coumadin for history of DVT/PE. Continue therapy on metoprolol and lisinopril for HTN history. Demadex for assistance with fluid management should continue. Maintain CPAP with oxygen as at home. Will continue to follow this patient over course of her stay. Plan: (1) Pacer interrogation (2) Echocardiography
[2017-07-07] MEDS ORDERED: KETOROLAC 15 MG/1 ML SDV IVP ONE ×2 (09:12→11:15)
[2017-07-07] MEDS ORDERED: FROVATRIPTAN SUCCINATE 2.5 MG PO PRN (09:13)
[2017-07-07] MEDS ORDERED: traZODone 100 MG TAB PO PRN (09:13)
--- NOTE | 2017-07-07 09:20 | HOSPPROG ---
Hospitalist Progress Note Assessment/Plan: #Acute chest pain: reproducible on exam. Trial Toradol -no PE on CTA -recent stress December normal (personally reviewed [facility] records) #Acute on chronic hypoxic resp failure: normally wears oxygen just at night -no infectious symptoms -repeat TTE and pacer interrogation #h/p PE/DVT: bridge with Lovenox, INR 1.77 #Hypothyroidism: LT4 #Bipolar: resume home meds #CHELSIE: CPAP #Complete heart block: pacer #WPW: s/p ablation #Compensated diastolic HF/pulm HTN: euvolemic. Echo pending #DVT ppx: coumadin #Disp: requires inpatient admission for further cardiac evaluation Subjective: still having chest pain, some SOB. No LE swelling Objective: Vital Signs Temp Pulse Resp BP Pulse Ox 36.6 C 65 22 H 108/59 L 95 07/07/17 07:49 07/07/17 07:49 07/07/17 07:49 07/07/17 07:49 07/07/17 07:49 Laboratory Results 07/07/17 05:30 07/07/17 05:30 PT 20.7 SEC (12.0-15.0) H 07/07/17 05:30 INR 1.77 (0.83-1.16) H 07/07/17 05:30 - Physical Exam Constitutional: obese Eyes: PERRL Ears, Nose, Mouth, Throat: moist mucous membranes Cardiovascular: regular rate and rhythym, no murmur, rub, or gallop, other (TTP over mid-left chest wall), No edema Gastrointestinal: normoactive bowel sounds, soft, non-tender abdomen Genitourinary: no bladder fullness, No garcia in urethra Skin: warm Musculoskeletal: full muscle strength Neurologic: AAOx3 Psychiatric: interacting appropriately ICD10 Worksheet Patient Problems: Problems Problem Status Onset Chest pain Acute Shortness of breath Acute
--- NOTE | 2017-07-07 09:22 | ASMTCMCOM ---
CM Note CM Note Notes: 07/07/2017 Case Management Note Reviewed chart. There are no case management d/c needs identified d/t pt age, activity levels prior to admission and marital status. There are no PT or OT evals ordered, but there is a cardiac rehab consult requested. Case Management d/c poc: Anticipating independent with followup as directed. Case Management available if needs change. Date Signed: 07/07/2017 09:22 AM Electronically Signed By:Yolande Dockery RN
[2017-07-07] MEDS: TORSEMIDE 20 MG TAB PO SCH (09:53)
[2017-07-07] MEDS: PANTOPRAZOLE SODIUM 40 MG TAB PO SCH (09:53)
[2017-07-07] MEDS: METOPROLOL SUCCINATE XR 50 MG TAB PO SCH (09:53)
[2017-07-07] MEDS: MODAFINIL 100 MG TAB PO SCH (09:53)
[2017-07-07] MEDS: LISINOPRIL 10 MG TAB PO SCH (09:53)
--- NOTE | 2017-07-07 10:57 | ECHO ---
[email or web address] [address] [address] Main: [phone] Fax: Transthoracic Echocardiogram Name: JOSE MAURO MR#: [id number] Study Date: 07/07/2017 Study Time: 09:51 AM Date of : 1980 Age: 36 year(s) Height: 175.3 cm (69 in.) Weight: 131.54 kg (290 lb.) BSA: 2.42 m2 Gender: Female Examination: Echo Indication: chest pain with dyspnea Image Quality: Technically Difficult Contrast: Requested by: David Shelton BP: 108 mmHg/59 mmHg Heart Rate: Rhythm: Indication: chest pain with dyspnea Procedure Staff Director Prospect: Elmira Spence Reading Physician: David Shelton Requesting Provider: Conclusions: Normal size left ventricle. Mild concentric LV hypertrophy. EF is 66 %. Normal diastolic LV function. Normal size right ventricle. There is a pacemaker lead noted in the right ventricle. The mitral valve is normal in appearance. Aortic valve is not well visualized. Trivial tricuspid valve regurgitation. Right ventricular systolic pressure measures 32mmHg. Normal size aortic root measuring 3.3 cm. Measurements: Chambers Valvular Assessment AV/MV Valvular Assessment TV/PV Normal Normal Normal Name Value Range Name Value Range Name Value Range Ao Rekha (MM): 3.3 cm (2.2 cm-3.7 AV Vmax: 1.21 m/s (1 m/s-1.7 TR Vmax: 2.58 mm/s ( - ) cm) m/s) TR PGmax: 27 mmHg ( - ) IVSd (2D): 1.2 cm (0.6 cm-1.1 AV maxP mmHg ( - ) syst. PAP: 32 mmHg ( - ) cm) LVOT Vmax: 0.87 m/s (0.7 m/s-1.1 PV Vmax: 0.94 m/s (0.6 m/s-0.9 LVDd (2D): 4.8 cm (3.9 cm-5.3 m/s) m/s) cm) MV E Vmax: 0.77 m/s ( - ) PV PGmax: 4 mmHg ( - ) LVDs (2D): 3.0 cm (2.1 cm-4 MV A Vmax: 0.59 m/s ( - ) cm) MV E/A: 1.31 ( - ) LVPWd (2D): 1.0 cm ( - ) LVEF (2D): 66 (>=54 %) Continued Measurements: Valvular Assessment AV/MV Valvular Assessment TV/PV Patient: JOSE MAURO Study Date: 07/07/2017 Page 1 of 2 09:51 AM Name Value Name Value MV DecTime: 208 m/s CVP (est.): 5 mmHg Additional Vessels Name Value Ao Ascendin.9 cm Findings: Left Ventricle: Normal size left ventricle. Mild concentric LV hypertrophy. Normal global systolic LV function. EF is 66 %. Normal diastolic LV function. Cannot rule out wall motion abnormalities due to poor endocardial definition.. Right Ventricle: Normal size right ventricle. Normal RV function. There is a pacemaker lead noted in the right ventricle. Left Atrium: The left atrium is normal in size. Right Atrium: The right atrium is normal in size. Mitral Valve: The mitral valve is normal in appearance. There is no mitral valve regurgitation. No mitral stenosis is present. Aortic Valve: Aortic valve is not well visualized. There is no aortic valve regurgitation. No aortic valve stenosis is present. Tricuspid Valve: Tricuspid valve not well visualized. Trivial tricuspid valve regurgitation. Right ventricular systolic pressure measures 32mmHg. The pulmonary artery pressure is slightly increased. Pulmonic Valve: Pulmonary valve not well visualized. Aorta: Normal size aortic root measuring 3.3 cm. Normal size ascending aorta measuring 2.9 cm. Pericardium: Trace anterior pericardial effusion versus fat pad. (No Signature Object) Patient: JOSE MAURO Study Date: 07/07/2017 Page 2 of 2 09:51 AM [id number]
[2017-07-07] MEDS: ENOXAPARIN 150 MG/ML SYR SC SCH ×2 (11:39→19:59)
[2017-07-07] MEDS: hydrOXYzine HCL 25 MG TAB PO SCH ×2 (16:15→20:04)
[2017-07-07] MEDS: LURASIDONE HCL 80 MG TAB PO SCH (18:36)
[2017-07-07] MEDS: AMITRIPTYLINE HCL 50 MG TAB PO SCH (19:58)
[2017-07-07] MEDS: WARFARIN SODIUM 3 MG TAB PO SCH (19:58)
[2017-07-07] MEDS: lamoTRIgine 100 MG TAB PO SCH (19:58)
[2017-07-07] MEDS: valACYclovir 500 MG TAB PO SCH (19:58)
[2017-07-07] MEDS: KETOROLAC 15 MG/1 ML SDV IVP SCH (19:59)
[2017-07-08] MEDS: KETOROLAC 15 MG/1 ML SDV IVP SCH ×5 (00:46→23:55)
[2017-07-08 04:38] LABS: INR 1.57 (0.83-1.16); PROTIME(PATIENT) 18.9 SEC (12.0-15.0)
[2017-07-08] MEDS: LEVOTHYROXINE 112 MCG TAB PO SCH (06:37)
[2017-07-08] MEDS: hydrOXYzine HCL 25 MG TAB PO SCH ×3 (06:37→20:23)
[2017-07-08] MEDS: TORSEMIDE 20 MG TAB PO SCH (09:05)
[2017-07-08] MEDS: DULoxetine 30 MG CAP PO SCH (09:05)
[2017-07-08] MEDS: PANTOPRAZOLE SODIUM 40 MG TAB PO SCH (09:05)
[2017-07-08] MEDS: MODAFINIL 100 MG TAB PO SCH (09:05)
[2017-07-08] MEDS: ENOXAPARIN 150 MG/ML SYR SC SCH ×2 (09:05→20:23)
[2017-07-08] MEDS: METOPROLOL SUCCINATE XR 50 MG TAB PO SCH (09:06)
[2017-07-08] MEDS: LISINOPRIL 10 MG TAB PO SCH (09:06)
--- NOTE | 2017-07-08 09:20 | PDCARPN ---
Cardiology Progress Note Chief Complaint: Continued chest pains and dyspnea with oxygen requirements (that were previously not needed) Assessment/Plan: Assessment: 07-08-17 Patient doing well today, but she continues to have issues with shortness of breath not previously noted. Chest pains are noted (substernal) and made worse this morning with both position (lying down) and deep inspiration. Work up performed yesterday without gross pathology noted. To date, there has not been any gross cardiovascular pathology noted (no cardiac biomarker elevation noted, no ECG changes, and normal vital signs). CT scan did not appreciate PE. No d- dimer was ordered. 07-07-17 Patient is a 36 y/o female with history of WPW s/p three ablations (last resulted in PPM implant), obesity, HTN, GERD (endoscopy in late last year without changes to medical therapy implemented), pHTN secondary to CHELSIE with CPAP and supplemental oxygen, DVT/PE with coumadin use, chronic diastolic heart failure, and bipolar disorder, who presents to [facility] with three days of dyspnea ( above and beyond "normal" as well as substernal chest pains. Patient with ongoing substernal chest pains (reported as "6") with radiation left morris, but not into the arm, neck, or jaw. Dyspnea continues to be noted (but, in review of the last outpatient office note from Dr. Sherlyn eBrgeron from 07-02-17, there were similar complaints of dyspnea voiced at that time. No fevers or chills. No constipation or diarrhea. No sick contacts. Echocardiography from April 2017, but results of this study were not available for review at the time of this note. CTA was performed after subtherapeutic INR was noted (1.5) without definite PE noted. History of "costochondritis" in the past, which the patient reported as "bad", and similar symptoms are being noted today. No weight gain or loss has been noted. At present, the patient is uncomfortable given the ongoing shortness of breath and chest pains noted. Plan: 1. Would consider review of the CT to ensure that there is no pathology - the INR has been subtherapeutic with this entire admission. At present, the patient is covered by lovenox for DVT/PE history, but the INR continues to be subtherapeutic 2. Would maintain CPAP use as at present 3. Strong recommendations for patient to ambulate on the floor to determine how she is feeling functionally. Subjective: Chest pains continue to be noted. Reviewed/Discussed With: hospitalist, multidisciplinary team Objective: Vital Signs (8 Hrs) Temp Pulse Resp BP Pulse Ox 07/08/17 07:09 36.8 C 63 14 102/57 L 94 07/08/17 04:18 36.8 C 66 18 97/63 L 93 Intake/Output (24 Hrs) 07/07/17 07/08/17 07/09/17 05:59 05:59 05:59 Intake Total 400 Output Total 2 Balance 398 Intake: Oral (ml) 400 Output: Urine (ml) 2 Toilet 2 Other: Weight 131.9 kg Intake Quantity Yes Sufficient Result Diagrams: 07/07/17 05:30 07/07/17 05:30 Cardiac Labs: Cardiac Lab Results (72 Hrs) 07/07/17 05:30 Troponin I < 0.012 EKG: normal sinus rhythm Telemetry: Normal sinus rhythm Echocardiogram: Normal LVEF with normal wall motion. No valve pathology was noted. - Physical Exam Constitutional: WDWN, healthy appearing, obese Eyes: PERRL, EOMI Ears, Nose, Mouth, Throat: moist mucous membranes Cardiovascular: regular rate and rhythm, no murmurs, no rubs, no gallops, pulses symmetric bilat Peripheral Pulses: 2+: dorsalis-pedis (R), dorsalis-pedis (L) Respiratory: clear to auscultate bilat, no crackles, no wheezes Gastrointestinal: normoactive bowel sounds Skin: no edema Musculoskeletal: no muscular tenderness Neurologic: AAOx3, CN II-XII grossly intact Psychiatric: cooperative, interactive, following commands ICD10 Worksheet Patient Problems: Problems Problem Status Onset Chest pain Acute Shortness of breath Acute
--- NOTE | 2017-07-08 10:10 | PDMN ---
Medical Necessity Medical necessity: ongoing CP and SOB> 2 midnights req further eval.
[2017-07-08] MEDS: ACETAMINOPHEN 325 MG TAB PO PRN (14:14)
--- NOTE | 2017-07-08 15:34 | HOSPPROG ---
Hospitalist Progress Note Assessment/Plan: Acute chest pain: reproducible on exam. Trial Toradol no PE on CTA recent stress Mindy normal ekg non ischemic (interp by me) Acute on chronic hypoxic resp failure: normally wears oxygen just at night no infectious symptoms repeat TTE and pacer interrogation check echo w bubble as has known pfo ABG h/p PE/DVT: bridge with Lovenox, INR 1.77 follow inr daily Hypothyroidism: LT4 Bipolar: resume home meds CHELSIE: CPAP Complete heart block: pacer WPW: s/p ablation Compensated diastolic HF/pulm HTN: euvolemic. Echo pending DVT ppx: coumadin Disp: requires inpatient admission for further cardiac evaluation Subjective: case d/w dr ross. remains hypoxic and dyspneic. ekg non ischemic Objective: Vital Signs Temp Pulse Resp BP Pulse Ox 37.2 C 71 18 95/63 L 94 07/08/17 11:37 07/08/17 11:37 07/08/17 11:37 07/08/17 11:37 07/08/17 11:37 07/07/17 07/08/17 07/09/17 05:59 05:59 05:59 Intake Total 400 500 Output Total 2 Balance 398 500 PT 18.9 SEC (12.0-15.0) H 07/08/17 03:16 INR 1.57 (0.83-1.16) H 07/08/17 03:16 - Physical Exam Constitutional: no apparent distress, appears nourished Eyes: PERRL, anicteric sclera Ears, Nose, Mouth, Throat: moist mucous membranes, hearing normal Cardiovascular: regular rate and rhythym, no murmur, rub, or gallop Respiratory: no respiratory distress, no rales or rhonchi Gastrointestinal: normoactive bowel sounds, soft, non-tender abdomen Genitourinary: no bladder fullness, No garcia in urethra Skin: warm, normal color Musculoskeletal: full muscle strength Neurologic: AAOx3 ICD10 Worksheet Patient Problems: Problems Problem Status Onset Chest pain Acute Shortness of breath Acute
--- NOTE | 2017-07-08 16:59 | ECHO ---
[email or web address] [place] [id number] Main: [phone] Fax: Transthoracic Echocardiogram Name: JOSE MAURO MR#: [id number] Study Date: 07/08/2017 Study Time: 03:46 PM Date of : 1980 Age: 36 year(s) Height: ( ) Weight: ( ) BSA: Gender: Female Examination: Limited Echo Indication: limited echo with bubble to r/o shunt Image Quality: Contrast: I.V. dose of agitated saline Requested by: Juan R Cote BP: / Heart Rate: Rhythm: Indication: limited echo with bubble to r/o shunt Procedure Staff Power Shovel Operator Helper: Elmira Cortez Physician: David Shelton Requesting Provider: Conclusions: An agitated saline study was performed and was positive for intracardiac shunting. Very technically difficult echocardiogram; small amount of bubbles noted in LV which is consistent with known PFO. . Measurements: Chambers Valvular Assessment AV/MV Valvular Assessment TV/PV Normal Normal Normal Name Value Range Name Value Range Name Value Range Continued Measurements: Findings: Left Atrium: An agitated saline study was performed and was positive for intracardiac shunting. Very technically difficult echocardiogram; small amount of bubbles noted in LV which is consistent with known PFO. . (No Signature Object) Patient: JOSE MAURO Study Date: 07/08/2017 Page 1 of 1 03:46 PM [id number]
[2017-07-08] MEDS: LURASIDONE HCL 80 MG TAB PO SCH (18:05)
[2017-07-08] MEDS: lamoTRIgine 100 MG TAB PO SCH (20:22)
[2017-07-08] MEDS: valACYclovir 500 MG TAB PO SCH (20:23)
[2017-07-08] MEDS: AMITRIPTYLINE HCL 50 MG TAB PO SCH (20:23)
[2017-07-08] MEDS ORDERED: WARFARIN SODIUM 4 MG TAB PO SCH (21:00)
[2017-07-09 04:18] LABS: INR 1.68 (0.83-1.16); PROTIME(PATIENT) 19.9 SEC (12.0-15.0)
[2017-07-09] MEDS: hydrOXYzine HCL 25 MG TAB PO SCH ×3 (06:46→21:38)
[2017-07-09] MEDS: KETOROLAC 15 MG/1 ML SDV IVP SCH ×3 (06:46→18:31)
[2017-07-09] MEDS: LEVOTHYROXINE 112 MCG TAB PO SCH (06:46)
[2017-07-09] MEDS: ENOXAPARIN 150 MG/ML SYR SC SCH ×2 (09:20→21:42)
[2017-07-09] MEDS: DULoxetine 30 MG CAP PO SCH (09:21)
[2017-07-09] MEDS: LISINOPRIL 10 MG TAB PO SCH (09:21)
[2017-07-09] MEDS: METOPROLOL SUCCINATE XR 50 MG TAB PO SCH (09:21)
[2017-07-09] MEDS: TORSEMIDE 20 MG TAB PO SCH (09:21)
[2017-07-09] MEDS: MODAFINIL 100 MG TAB PO SCH (09:21)
[2017-07-09] MEDS: PANTOPRAZOLE SODIUM 40 MG TAB PO SCH (09:22)
--- NOTE | 2017-07-09 15:28 | PDCARPN ---
Cardiology Progress Note Chief Complaint: Ongoing complaints of chest pain (12/07). Assessment/Plan: Assessment: 07-09-17 Patient continues to have complaints of chest pain. V/Q scan from yesterday with "low prob" for PE. Echo with bubble contrast injection continues to have a small right to left shunt (similar to that which was noted in the past). Chest pains continue to be appreciated at 6/10. There is also shortness of breath with minimal activity. Patient was sitting up in chair comfortably today with friend. 07-08-17 Patient doing well today, but she continues to have issues with shortness of breath not previously noted. Chest pains are noted (substernal) and made worse this morning with both position (lying down) and deep inspiration. Work up performed yesterday without gross pathology noted. To date, there has not been any gross cardiovascular pathology noted (no cardiac biomarker elevation noted, no ECG changes, and normal vital signs). CT scan did not appreciate PE. No d- dimer was ordered. 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 Patient with ongoing substernal chest pains (reported as "6") with radiation left morris, but not into the arm, neck, or jaw. Dyspnea continues to be noted (but, in review of the last outpatient office note from Dr. Sherlyn Bergeron from 07-02-17, there were similar complaints of dyspnea voiced at that time. No fevers or chills. No constipation or diarrhea. No sick contacts. Echocardiography from April 2017, but results of this study were not available for review at the time of this note. CTA was performed after subtherapeutic INR was noted (1.5) without definite PE noted. History of "costochondritis" in the past, which the patient reported as "bad", and similar symptoms are being noted today. No weight gain or loss has been noted. At present, the patient is uncomfortable given the ongoing shortness of breath and chest pains noted. Plan: 1. Continue lovenox coverage and maintain coumadin - dose adjustments likely needed to achieve therapeutic levels 2. CPAP should continue 3. Consider GI or musculoskeletal etiology for the symptom (chest pain) that are noted 4. Would consider formal pulmonary work up (? PFTs) given the ongoing complaints of shortness of breath Subjective: Chest pains with shortness of breath Reviewed/Discussed With: family, hospitalist, multidisciplinary team Objective: Vital Signs (8 Hrs) Temp Pulse Resp BP Pulse Ox 07/09/17 11:11 36.8 C 65 16 105/71 97 Intake/Output (24 Hrs) 07/08/17 07/09/17 07/10/17 05:59 05:59 05:59 Intake Total 400 2300 Output Total 2 900 600 Balance 398 1400 -600 Intake: Oral (ml) 400 2300 Output: Urine (ml) 2 900 600 Toilet 2 900 600 Other: Intake Quantity Yes Sufficient Number of Voids Toilet 1 Number of Stools Toilet 1 Result Diagrams: 07/09/17 03:29 07/07/17 05:30 Telemetry: sinus rhythm - Physical Exam Constitutional: healthy appearing, no apparent distress, obese Eyes: PERRL, EOMI Ears, Nose, Mouth, Throat: moist mucous membranes Cardiovascular: regular rate and rhythm, no murmurs, no rubs, no gallops Peripheral Pulses: 2+: dorsalis-pedis (R), dorsalis-pedis (L) Respiratory: clear to auscultate bilat, no crackles, no wheezes Gastrointestinal: normoactive bowel sounds Skin: no edema Musculoskeletal: no muscular tenderness Neurologic: AAOx3, CN II-XII grossly intact Psychiatric: cooperative, interactive, following commands ICD10 Worksheet Patient Problems: Problems Problem Status Onset Chest pain Acute Shortness of breath Acute
[2017-07-09] MEDS ORDERED: ALBUTEROL 3 ML DEYVIAL IH PRN (16:53)
--- NOTE | 2017-07-09 17:01 | HOSPPROG ---
Hospitalist Progress Note Assessment/Plan: Acute chest pain: reproducible on exam. Trial Toradol no PE on CTA recent stress December normal ekg non ischemic (interp by me) Acute on chronic hypoxic resp failure: ABG confirms OHS but doesnt explain dyspnea bubble study w unchanged shunt check pft's i suspect she has anxiety and deconditioning h/p PE/DVT: bridge with Lovenox, INR 1.77 follow inr daily Hypothyroidism: LT4 Bipolar: resume home meds CHELSIE: CPAP Complete heart block: pacer WPW: s/p ablation Compensated diastolic HF/pulm HTN: euvolemic. Echo pending DVT ppx: coumadin Disp: requires inpatient admission for further cardiac evaluation Subjective: case d.w dr ross. tele: no svt Objective: Vital Signs Temp Pulse Resp BP Pulse Ox 36.6 C 70 18 118/81 H 94 07/09/17 15:38 07/09/17 15:38 07/09/17 15:38 07/09/17 15:38 07/09/17 15:38 Laboratory Results 07/09/17 03:29 07/08/17 07/09/17 07/10/17 05:59 05:59 05:59 Intake Total 400 2300 1800 Output Total 2 900 600 Balance 398 1400 1200 PT 19.9 SEC (12.0-15.0) H 07/09/17 03:29 INR 1.68 (0.83-1.16) H 07/09/17 03:29 - Physical Exam Constitutional: no apparent distress, appears nourished, other (anxious) Eyes: PERRL Ears, Nose, Mouth, Throat: moist mucous membranes, hearing normal Cardiovascular: regular rate and rhythym, no murmur, rub, or gallop, No systolic murmur Respiratory: no respiratory distress, no rales or rhonchi, No expiratory wheeze , No inspiratory crackles Gastrointestinal: normoactive bowel sounds, soft, non-tender abdomen Genitourinary: no bladder fullness, No garcia in urethra Skin: warm, normal color Musculoskeletal: full muscle strength, no muscle tenderness Neurologic: AAOx3 Psychiatric: interacting appropriately Lymph, Heme, Immunologic: no cervical LAD ICD10 Worksheet Patient Problems: Problems Problem Status Onset Chest pain Acute Shortness of breath Acute
[2017-07-09] MEDS: LURASIDONE HCL 80 MG TAB PO SCH (18:31)
[2017-07-09] MEDS: lamoTRIgine 100 MG TAB PO SCH (21:39)
[2017-07-09] MEDS: WARFARIN SODIUM 3 MG TAB PO SCH (21:39)
[2017-07-09] MEDS: valACYclovir 500 MG TAB PO SCH (21:39)
[2017-07-09] MEDS: AMITRIPTYLINE HCL 50 MG TAB PO SCH (21:39)
[2017-07-10] MEDS: KETOROLAC 15 MG/1 ML SDV IVP SCH ×2 (00:05→06:06)
[2017-07-10 04:45] LABS: INR 1.77 (0.83-1.16); PROTIME(PATIENT) 20.7 SEC (12.0-15.0)
[2017-07-10] MEDS: LEVOTHYROXINE 112 MCG TAB PO SCH (06:07)
[2017-07-10] MEDS: hydrOXYzine HCL 25 MG TAB PO SCH (06:07)
[2017-07-10 07:21] VITALS: BP 103/47; PULSE 61; RESP 12; TEMP 97.8; O2SAT 93
--- NOTE | 2017-07-10 09:02 | HOSPPROG ---
Hospitalist Progress Note Assessment/Plan: Acute chest pain: reproducible on exam. Trial Toradol no PE on CTA recent stress December normal ekg non ischemic (interp by me) Acute on chronic hypoxic resp failure: ABG confirms OHS but doesnt explain dyspnea bubble study w unchanged shunt normal bedside spirometry i suspect she has anxiety and deconditioning h/p PE/DVT: bridge with Lovenox, INR 1.77 follow inr daily Hypothyroidism: LT4 Bipolar: resume home meds CHELSIE: CPAP Complete heart block: pacer WPW: s/p ablation Compensated diastolic HF/pulm HTN: euvolemic. Echo pending DVT ppx: coumadin Disp: home today lovenx bridge >30 minutes on dc Subjective: normal spirometry Objective: Vital Signs Temp Pulse Resp BP Pulse Ox 36.6 C 61 12 103/47 L 93 07/10/17 07:21 07/10/17 07:21 07/10/17 07:21 07/10/17 07:21 07/10/17 07:21 Laboratory Results 07/10/17 03:13 07/09/17 07/10/17 07/11/17 05:59 05:59 05:59 Intake Total 2300 1950 Output Total 900 1950 Balance 1400 0 PT 20.7 SEC (12.0-15.0) H 07/10/17 03:13 INR 1.77 (0.83-1.16) H 07/10/17 03:13 - Physical Exam Constitutional: no apparent distress, appears nourished Eyes: PERRL Ears, Nose, Mouth, Throat: moist mucous membranes, hearing normal Cardiovascular: regular rate and rhythym, no murmur, rub, or gallop Respiratory: no respiratory distress, no rales or rhonchi Gastrointestinal: normoactive bowel sounds, soft, non-tender abdomen Genitourinary: no bladder fullness, No garcia in urethra Skin: warm, normal color Musculoskeletal: full muscle strength Neurologic: AAOx3 ICD10 Worksheet Patient Problems: Problems Problem Status Onset Chest pain Acute Shortness of breath Acute
[2017-07-10] MEDS: PANTOPRAZOLE SODIUM 40 MG TAB PO SCH (09:04)
[2017-07-10] MEDS: LISINOPRIL 10 MG TAB PO SCH (09:04)
[2017-07-10] MEDS: METOPROLOL SUCCINATE XR 50 MG TAB PO SCH (09:04)
[2017-07-10] MEDS: MODAFINIL 100 MG TAB PO SCH (09:05)
[2017-07-10] MEDS: TORSEMIDE 20 MG TAB PO SCH (09:05)
[2017-07-10] MEDS: ENOXAPARIN 150 MG/ML SYR SC SCH (09:05)
[2017-07-10] MEDS: DULoxetine 30 MG CAP PO SCH (09:05)
--- NOTE | 2017-07-10 14:33 | ASDISCHSUM ---
Discharge Information Plan Status:Home with No Needs Medically Cleared to Leave:07/09/2017 Discharge Date:07/10/2017 10:50 AM CM D/C Disposition:Home, Routine, Self-Care ADT D/C Disposition:Home, Routine, Self-Care Projected Discharge Date:07/10/2017 12:00 AM Transportation at D/C:Family Discharge Delay Reason: Follow-Up Date:07/10/2017 12:00 AM Discharge Slot: Final Diagnosis: Placement Information Patient Contact Information Contact Name:TERRELL Relationship: Address:[address] [place] [address] City:[place] Alternate Phone: State/Zip Code:[place] [address] Email: Financial Information Financial Class:HMO and PPO Plans Primary Plan Desc:JOSE Primary Plan Number:[id number] Secondary Plan Desc: Secondary Plan Number: Assessment Information [facility] CM Progress Note CM Note CM Note Notes: 07/07/2017 Case Management Note Reviewed chart. There are no case management d/c needs identified d/t pt age, activity levels prior to admission and marital status. There are no PT or OT evals ordered, but there is a cardiac rehab consult requested. Case Management d/c poc: Anticipating independent with followup as directed. Case Management available if needs change. Date Signed: 07/07/2017 09:22 AM Electronically Signed By:Yolande Dockery RN Intervention Information
--- NOTE | 2017-07-10 20:46 | GDS ---
[f rep st] DISCHARGE SUMMARY DISCHARGE DIAGNOSES: 1. Known supraventricular tachycardia, status post ablation x3. 2. History of pulmonary embolism, on anticoagulation. 3. Pulmonary hypertension with pulmonary artery pressures in the low 30s. 4. Obstructive sleep apnea. 5. Diastolic heart failure. 6. Subjective dyspnea. 7. Obesity hypoventilation syndrome. HOSPITAL COURSE: Please see admission history and physical by Dr. Daljit Ricardo. The patient presented with shortness of breath and hypoxia of 85% on room air. She had a negative CTA for pulmo nary embolism. She had an echocardiogram that was unchanged. It did not show diastolic dysfunction. It did show pulmonary artery pressure of 32 mmHg, normal left ventricular function. She had a V/Q scan which was felt to be low probability for pulmonary embolism, taken with our low clinical suspici on, given a negative CT PE, active anticoagulation and negative lower extremity ultrasounds, which gi ves her a 4% chance of VTE or pulmonary embolism by the PIOPED data. She had a bedside spirometry sh owing no obstruction. She had an ABG showing a pCO2 of 49 without hypoxia, consistent with obesity h ypoventilation syndrome. The patient had a fair amount of anxiety about her dyspnea on exertion. Sh e had a fairly significant workup here which revealed really nothing other than obesity hypoventilati on syndrome and deconditioning. She was advised to use supplemental oxygen on an as-needed basis, wh ich she already wears at night. She was seen by Cardiology, who felt that there were no cardiology c auses for her dyspnea. /[id number]/MODL
== END 2017-07-10 10:50 | disposition home or self-care (01) | DRG 313 ==
LOC: F2W 07-07 07:05 → OBSVTOIN 07-07 15:50
PROVIDERS: ADMIT Student in an Organized Health Care Education/Training Program; ATTEND Student in an Organized Health Care Education/Training Program
DX: R07.9 Chest pain, unspecified (principal); I47.1 Supraventricular tachycardia; E66.2 Morbid (severe) obesity with alveolar hypoventilation; I50.32 Chronic diastolic (congestive) heart failure; I27.23 Pulmonary hypertension due to lung diseases and hypoxia; R06.00 Dyspnea, unspecified; Z86.711 Personal history of pulmonary embolism; Z79.01 Long term (current) use of anticoagulants; E03.9 Hypothyroidism, unspecified; Z95.0 Presence of cardiac pacemaker
CPT/HCPCS: 96374; A9540; A9558; G0378; J1885; J2405; J7613; Q9967

== ENCOUNTER 2017-08-05 07:44 | Day surgery (SDC) | payer OTHER ==
[2017-08-05] MEDS ORDERED: NS 1,000 ML IV ONE (07:47)
[2017-08-05] MEDS ORDERED: diphenhydrAMINE 25 MG CAP PO ONE ×3 (07:47→08:12)
[2017-08-05] MEDS ORDERED: DIAZEPAM 5 MG TAB PO ONE ×2 (07:47→08:01)
[2017-08-05] MEDS ORDERED: FAMOTIDINE 20 MG TAB PO ONE ×2 (07:47→08:01)
[2017-08-05] MEDS ORDERED: ASPIRIN EC 325 MG TAB PO ONE ×3 (07:47→08:13)
[2017-08-05] MEDS ORDERED: TEMAZEPAM 15 MG CAP PO PRN (08:01)
[2017-08-05] MEDS ORDERED: NS 1,000 ML IV SCH (08:01)
[2017-08-05] MEDS ORDERED: NITROGLYCERIN 0.4 MG BTL SL PRN ×2 (08:01→10:44)
[2017-08-05] MEDS ORDERED: ACETAMINOPHEN 325 MG TAB PO PRN (08:01)
--- NOTE | 2017-08-05 08:07 | CPEKG ---
Heart Rate: 89 RR Interval: 674 P-R Interval: 176 QRSD Interval: 108 QT Interval: 396 QTC Interval: 482 P Rillito: 57 QRS Rillito: -18 T Wave Rillito: 15 EKG Severity - NORMAL ECG - EKG Impression: SINUS RHYTHM Electronically Signed By: Tex Sim 05-Aug-2017 16:06:46
[2017-08-05] MEDS ORDERED: FAMOTIDINE 20 MG TAB ONE (08:12)
[2017-08-05] MEDS ORDERED: DIAZEPAM 5 MG TAB ONE (08:13)
[2017-08-05 08:21] LABS: PLATELET COUNT 206 10^3/uL (150-400)
[2017-08-05 08:31] LABS: INR 0.95 (0.83-1.16); PROTIME(PATIENT) 12.9 SEC (12.0-15.0)
[2017-08-05] MEDS ORDERED: VERAPAMIL 5 MG/2 ML VIAL ONE (09:15)
[2017-08-05] MEDS ORDERED: fentaNYL 100 MCG/2 ML INJ ONE ×2 (09:15→09:49)
[2017-08-05] MEDS ORDERED: MIDAZOLAM 2 MG/2 ML VIAL ONE ×2 (09:15)
[2017-08-05] MEDS ORDERED: HEPARIN 10,000 UNIT/10 ML MDV (1,000 UNIT/ML) ONE (09:15)
[2017-08-05] MEDS ORDERED: LIDOCAINE 1% 300 MG/30 ML SDV ONE (09:15)
[2017-08-05] MEDS ORDERED: IOPAMIDOL (ISOVUE-370) 150 ML BTL IV ONE (09:16)
--- NOTE | 2017-08-05 09:35 | PDHPUP ---
History & Physical Update H&P update statement: This history and physical update is based on an assessment of the patient which was completed after admission or registration (within 24 hours), but prior to the surgery/procedure. H&P update: H&P reviewed & patient examined, no change in patient's condition since H&P completed H&P changes: I reviewed the patient's past history. In particular she has had difficulty with conscious sedation related to waking up during procedures and having significant discomfort that she could not express. In light of her morbid obesity, difficult airway, history of difficulty with conscious sedation I think anesthesia consultation and treatment would be optimal. This will be arranged. She has a pacemaker in her right subclavian fossa. Will plan for right and left from the left arm. In light of her history of DVT, pseudo aneurysm would like to avoid femoral access.
[2017-08-05] MEDS ORDERED: MIDAZOLAM 2 MG/2 ML VIAL IVP ONE (09:36)
--- NOTE | 2017-08-05 09:38 | PDANEPAE ---
ANE History of Present Illness lhc,rhc ANE Past Medical History - Cardiovascular History Hx Hypertension: No Hx Arrhythmias: Yes Hx Chest Pain: No Hx Coronary Artery / Peripheral Vascular Disease: No Hx CHF / Valvular Disease: No Hx Palpitations: No - Pulmonary History Hx COPD: No Hx Asthma/Reactive Airway Disease: No Hx Recent Upper Respiratory Infection: No Hx Oxygen in Use at Home: Yes Hx Sleep Apnea: Yes - Neurologic History Hx Cerebrovascular Accident: No Hx Seizures: No Hx Dementia: No - Endocrine History Hx Diabetes: No - Renal History Hx Renal Disorders: No - Liver History Hx Hepatic Disorders: No - Cancer History Hx Cancer: No - Congenital Disorder History Hx Congenital Disorders: No - GI History Hx Gastrointestinal Disorders: No - Other Health History Other Health History: h/o DVT/PE on coumadin - Chronic Pain History Chronic Pain: Yes ANE Review of Systems Review of Systems: - Exercise capacity METS (RN): 3 METS ANE Patient History - Allergies Allergies/Adverse Reactions: No Known Allergies Allergy (Verified 07/06/17 18:59) - Home Medications Home Medications: Amitriptyline HCl [Elavil 50 mg (*)] 50 mg PO HS 01/02/17 [Last Taken 07/05/17] Ibuprofen [Motrin (*)] 200 mg PO DAILY PRN 01/02/17 [Last Taken 07/31/17] Levothyroxine [Synthroid 112 mcg (*)] 112 mcg PO DAILY06 01/02/17 [Last Taken ] Lurasidone HCl [Latuda] 120 mg PO HS 01/02/17 [Last Taken 08/04/17] Pantoprazole Sodium [Protonix 40mg (*)] 40 mg PO DAILY 01/02/17 [Last Taken 12/15] Warfarin Sodium [Coumadin 3MG (*)] 6 mg PO SUMOWEFR@01/02/17 [Last Taken ] Warfarin Sodium [Coumadin 4MG (*)] 4 mg PO TUTHSA@01/02/17 [Last Taken ] lamoTRIgine [LamICTAL 100 MG (*)] 300 mg PO HS 01/02/17 [Last Taken 08/04/17] traZODone [traZODONE 100MG (*)] 100 - 200 mg PO HS PRN 01/02/17 [Last Taken ] valACYclovir [Valtrex (*)] 500 mg PO HS 01/02/17 [Last Taken 08/04/17] Adalimumab [Humira] 40 mg SQ Q14D 07/06/17 [Last Taken 07/05/17] DULoxetine [Cymbalta 30 MG (*)] 90 mg PO DAILY 07/06/17 [Last Taken 07/06/17] Lisinopril [Zestril 10 mg (*)] 10 mg PO DAILY 07/06/17 [Last Taken 08/05/17] Metoprolol Succinate Xr [Toprol Xl 50 mg (*)] 50 mg PO DAILY 07/06/17 [Last Taken 08/05/17] Modafinil [Provigil 100 mg (*)] 200 mg PO DAILY 07/06/17 [Last Taken 08/04/17] Torsemide 40 mg PO DAILY 07/06/17 [Last Taken 08/04/17] Frovatriptan Succinate [Frova] 2.5 mg PO DAILY PRN 07/07/17 [Last Taken Unknown] hydrOXYzine HCL [hydrOXYzine HCL (RX)] 50 mg PO Q8 07/07/17 [Last Taken 08/03/17 ] - NPO status NPO Status: no food or drink >8 hours - Anes Hx Anes Hx: post operative nausea and vomiting - Smoking Hx Smoking Status: Never smoked ANE Labs/Vital Signs - Labs Result Diagrams: 08/05/17 08:00 08/05/17 08:00 - Vital Signs Height: 175 cm Weight: 129.3 kg ANE Physical Exam - Airway Mallampati Score: Class 2 Mouth exam: normal dental/mouth exam - Pulmonary Pulmonary: no respiratory distress - Cardiovascular Cardiovascular: regular rate and rhythym - ASA Status ASA Status: III ANE Anesthesia Plan Anesthesia Plan: general endotracheal anesthesia
[2017-08-05] MEDS ORDERED: ROCURONIUM 50 MG/5 ML VIAL ONE (09:47)
[2017-08-05] MEDS ORDERED: SUCCINYLCHOLINE CHLORIDE 200 MG/10 ML SYR IVP ONE (09:47)
[2017-08-05] MEDS ORDERED: ONDANSETRON 4 MG/2 ML VIAL ONE (09:47)
[2017-08-05] MEDS ORDERED: DEXAMETHASONE 4 MG/ML VIAL ONE (09:47)
[2017-08-05] MEDS ORDERED: KETOROLAC 30 MG/1 ML SDV ONE (09:47)
[2017-08-05] MEDS ORDERED: LIDOCAINE 2% 5 ML SDV ONE (09:48)
[2017-08-05] MEDS ORDERED: SCOPOLAMINE HYDROBROMIDE 1 MG/3 DAYS PATCH TD ONE (09:49)
[2017-08-05] MEDS ORDERED: PROPOFOL 200 MG/20 ML VIAL ONE (09:49)
[2017-08-05] MEDS ORDERED: PHENYLEPHRINE HCL 100 MCG/ML SYR ONE (10:00)
[2017-08-05] MEDS ORDERED: ATROPINE SULFATE 1 MG/10 ML SYR IVP PRN (10:44)
[2017-08-05] MEDS ORDERED: ONDANSETRON 4 MG/2 ML VIAL IVP PRN ×2 (10:44→10:59)
--- NOTE | 2017-08-05 10:48 | PDDXCAT ---
Diagnostic Cath Note - . Date: 08/05/17 Non Linear Editor: Cruzito Indication: other (Heart failure) - Procedure Access: left wrist Procedure: left heart catheterization, coronary angiography - Materials Left Heart Cath size: 4F Left Heart Cath materials: standard multipack (JL4, JR4, pigtail) - Findings-Left Heart Catheterization LM: Normal LAD: Normal LCX: Normal RCA: Dominant: Normal EDP: 18 mm of mercury LVEF: 65 Wall motion: Normal Complications: None Estimated blood loss: <50ml Closure method: TR Band Assessment: Total contrast 90 cc. Anesthesia perform sedation. Total radiation 473 mGy. Conclusions: Angiographically normal coronary arteries. Normal left ventricular systolic function with normal filling pressures. Normal brain atretic peptide suggesting normal cardiovascular function. No evidence of CHF. Patient Problems: Problems Problem Status Onset Chest pain Acute Shortness of breath Acute
[2017-08-05] MEDS ORDERED: NS 500 ML IV PRN (10:59)
[2017-08-05] MEDS ORDERED: fentaNYL 100 MCG/2 ML INJ IVP PRN (10:59)
[2017-08-05] MEDS ORDERED: NALOXONE HCL 0.4 MG/ML INJ IVP PRN (10:59)
[2017-08-05] MEDS ORDERED: ALBUTEROL 3 ML DEYVIAL IH PRN (10:59)
--- NOTE | 2017-08-05 10:59 | POSTANESTH ---
Post Anesthetic Evaluation Cardiovascular Status: Normal, Stable Respiratory Status: Normal, Stable Level of Consciousness/Mental Status: Can Participate in Eval Pain Control: Adequate, Prn Tx Ordered Nausea/Vomiting Control: Adequate, Prn Tx Ordered Complications Possibly Related to Anesthesia: None Noted
--- NOTE | 2017-08-05 13:24 | ECHO ---
[email or web address] [id number] Main: [phone] Fax: Transthoracic Echocardiogram Name: JOSE MAURO MR#: [id number] Study Date: 08/05/2017 Study Time: 11:10 AM Date of : 1980 Age: 37 year(s) Height: 175.3 cm (69 in.) Weight: 129.28 kg (285 lb.) BSA: 2.4 m2 Gender: Female Examination: Limited Echo Indication: Assess RVSP and RV function, pacer Image Quality: Technically Difficult Contrast: Requested by: Humberto East BP: 96 mmHg/55 mmHg Heart Rate: Rhythm: Indication: Assess RVSP and RV function, pacer Procedure Staff Ager Tender: Angi Cervantes RDCS Reading Physician: Humberto East Requesting Provider: Conclusions: normal right ventricular systolic pressure. Normal right ventricular function Measurements: Chambers Valvular Assessment AV/MV Valvular Assessment TV/PV Normal Normal Normal Name Value Range Name Value Range Name Value Range TR Vmax: 1.93 mm/s ( - ) TR PGmax: 15 mmHg ( - ) syst. PAP: 20 mmHg ( - ) Continued Measurements: Valvular Assessment TV/PV Name Value CVP (est.): 5 mmHg Findings: Left Ventricle: Normal global systolic LV function. Right Ventricle: Normal RV function. There is a pacemaker lead noted in the right ventricle. Tricuspid Valve: Trivial tricuspid valve regurgitation. The pulmonary artery pressure is normal. (No Signature Object) Patient: JOSE MAURO Study Date: 08/05/2017 Page 1 of 2 11:10 AM Patient: JOSE MAURO Study Date: 08/05/2017 Page 2 of 2 11:10 AM [id number]
[2017-08-08] MEDS ORDERED: PATCH REMOVAL 1 EA PATCH TD SCH (09:50)
== END 2017-08-05 13:54 | disposition home or self-care (01) ==
LOC: FCATH 07:44
PROVIDERS: ATTEND Internal Medicine Interventional Cardiology
PROC: 4A023N7 Measurement of Cardiac Sampling and Pressure, Left Heart, Percutaneous Approach (ICD-10-PCS; principal; 2017-08-05)
PROC: B2151ZZ Fluoroscopy of Left Heart using Low Osmolar Contrast (ICD-10-PCS; principal; 2017-08-05)
PROC: B2111ZZ Fluoroscopy of Multiple Coronary Arteries using Low Osmolar Contrast (ICD-10-PCS; principal; 2017-08-05)
DX: R06.02 Shortness of breath (principal); R07.9 Chest pain, unspecified; E66.01 Morbid (severe) obesity due to excess calories; Z95.0 Presence of cardiac pacemaker; Z86.718 Personal history of other venous thrombosis and embolism; Z86.711 Personal history of pulmonary embolism
CPT/HCPCS: 93005; 93308; 93458; C1769; J0330; J1100; J1644; J1885; J2250; J2370; J2405; J2704; J3010; Q9967